=== PATIENT | male | born 1965 | race Hispanic/Latino ===

== ENCOUNTER 2016-11-24 08:38 | Day surgery (SDC) | payer OTHER ==
[~2016-11-24] VITALS: Ht 170.2 cm; Wt 77.0 kg
[~2016-11-24 08:38] MED LIST: 0.9% Sodium Chloride 1,000 ML IV PRN; GLUC500T12 PO; IRON18TA PO; MULT1CAP33 PO; Sodium Chloride LOK Flush 10 mL Syringe IV PRN; fentaNYL-PF 50 mCg/mL 2 mL Inj IVPUSH PRN
[2016-11-24 09:25] VITALS: BP 124/79; PULSE 67; RESP 16; O2SAT 100
--- NOTE | 2016-11-24 10:39 | PCM.ENDCOL ---
Colonoscopy Date of Service: Nov 24, 2016 Physician Jose Miguel Bolton MD Indication for Procedure Screening and blood in the stools Post Procedure Dx & Findings: Polyp hemorrhoids Procedure Colonoscopy Prep adequate Cecum 3 minutes Withdrawal 10 minutes PROCEDURE IN DETAIL: After unremarkable rectal examination was not spherical was inserted patient's anal canal was advanced to cecum. Landmarks are identified including the ileocecal valve and appendiceal orifice. Scope was withdrawn systematically. The mucosa of the cecum, ascending, transverse, descending, sigmoid, rectal mucosa lined with whitish, pink, smooth, glistening, normal-appearing mucosa, normal fine branching, underlying vascularity, normal haustra. The patient tolerated procedure and was transported to observation area. In the rectosigmoid junction, there were total of 3 polyps. 2 polyps were less than 1 mm in size which were all resected completely using cold forceps. One polyp was 3 mm in size which was resected completely using cold snare. In the rectum retroflexion was done which showed hemorrhoidsA Anal canal was inspected carefully and the way out hemorrhoids noted. Impression Polyps 3 Hemorrhoids Recommendation Repeat colonoscopy 3 years. Presedation Assessment Risks and Benefits Informed consent was obtained from the patient after all risks and benefits including but not limited to drug reaction, infection, pain, bleeding, perforation, as well as alternatives were discussed. Patient monitoring Continuous pulse oximetry, cardiac monitoring, blood pressure monitoring, IV access, and oxygen at 2L per nasal cannula. Periprocedural Fentanyl: Fentanyl 100mcg Incrementally Midazolam: Midazolam 5mg Incrementally Complications There were no periprocedural complications identified. Post Procedure Plan Post Procedure Recommendations 1. Restrict activities today. 2. Resume normal activities in the morning. 3. Resume medications. 4. Patient informed of normal post procedure side effects as bloating, drowsiness, blood streaking in the stool. 5. average risk CRCS. If colon polyps come back as: -Hyperplastic- can repeat colonoscopy in 10 years -Tubular adenoma- repeat colonoscopy in 5 years -Tubulovillous/villous adenoma- repeat colonoscopy in 3 years -If any dysplasia- return to clinic as soon as possible 6. Please don't hesitate to call me with any questions. Jose Miguel Bolton MD Nov 24, 2016 10:39
[2016-11-24 10:42] VITALS: BP 95/64; PULSE 64; RESP 12; O2SAT 95
[2016-11-24 10:52] VITALS: BP 88/59; PULSE 62; RESP 16; O2SAT 96
[2016-11-24 11:02] VITALS: BP 108/68; PULSE 72; RESP 16; O2SAT 99
--- NOTE | 2016-11-25 12:08 | PATH ---
SURGICAL PATHOLOGY Attending Physician:Jose Miguel Bolton M.D. CASE STATUS: Signed Out PATIENT NAME: MIRELLA BARBOSA PID: [id number] : 1965 DATE COLLECTED:11/24/2016 17:57 SPECIMEN: Colon, Biopsy CLINICAL HISTORY: RECTO-SIGMOID POLYP X3 FINAL DIAGNOSIS: Rectosigmoid Colon Polyps: Tubular adenoma involving single biopsy fragment. ICD10 D12.7 GROSS DESCRIPTION: The specimen is received in one formalin filled container labeled with the patient's name, sublabeled "rectosigmoid polyp X3" and consists of 3 portions of tissue which aggregate to 0.3 x 0.3 x 0.3 CM. The specimen is entirely submitted in one cassette. 11/24/2016 [facility] ICD-9 CODES: CPT CODES: 1: 48953 Electronically Signed Out Luis Duffy MD [facility] [address], [place] [address] Technical component performed at [facility], [facility] [address], [address]
== END 2016-11-24 23:59 | disposition home or self-care (01) ==
LOC: END 08:38
PROVIDERS: ATTEND Internal Medicine
DX: D12.7 Benign neoplasm of rectosigmoid junction (principal); K64.9 Unspecified hemorrhoids
CPT/HCPCS: 45380; 45385; 88305; G0500; J2250; J7030